=== PATIENT | female | born 1965 | race Caucasian/White ===

== ENCOUNTER → 2016-06-12 | Outpatient (CLI) | payer BC | END | disposition home or self-care (01) | LOC: LABWHC1 16:25 | PROVIDERS: ATTEND Nurse Practitioner | DX: E03.9 Hypothyroidism, unspecified (principal) | CPT/HCPCS: 36415; 84443; 86376 ==

== ENCOUNTER → 2018-03-26 | Outpatient (CLI) | payer OTHER ==
[2018-03-26 11:30] LABS: Basophils % (A) 1 %; Eosinophils # (A) 0.3 k/uL (0-0.7); Eosinophils % (A) 4 %; HCT 42.3 % (34.0-46.0); HGB 14.1 gm/dL (11.4-16.0); Lymphocytes # (A) 1.9 k/uL (1.0-4.8); Lymphocytes % (A) 30 %; MCH 29.4 pg (25.0-35.0); MCHC 33.3 g/dL (31.0-37.0); MCV 88.2 fL (80.0-100.0); Mean Platelet Volume 6.7; Monocytes # (A) 0.3 k/uL (0-1.0); Monocytes % (A) 5 %; Neutrophils # (A) 3.8 k/uL (1.3-7.7); Neutrophils % (A) 58 %; Platelet Count 286 k/uL (150-450); RDW 12.7 % (11.5-15.5); WBC 6.4 k/uL (3.8-10.6)
[2018-03-26 16:31] LABS: Albumin 4.6 g/dL (3.80-4.90); Anion Gap 8.1 mmol/L (4.00-12.00); Calcium 9.9 mg/dL (8.7-10.3); Carbon Dioxide 26.9 mmol/L (21.6-31.8); Globulin 2.3 g/dL (1.6-3.3); LDL Cholesterol,Calculated 138.6 mg/dL (0.0-131.0); Potassium 4.6 mmol/L (3.5-5.5); Total Bilirubin 0.5 mg/dL (0.2-1.2); Total Protein 6.9 g/dL (6.2-8.2); VLDL Calculation 20.4 mg/dL (5.00-40.00)
[2018-03-26 16:35] LABS: Vitamin D 25 Hydroxy 20.7 ng/mL (30.0-100.0)
[2018-03-26 16:40] LABS: T4, Free (Free Thyroxine) 1.4 ng/dL (0.80-1.80)
[2018-03-26 16:47] LABS: Thyroid Peroxidase Antibodies 202.3 U/mL (0.0-60.0)
== END | disposition home or self-care (01) ==
LOC: LABWHC1 10:36
PROVIDERS: ATTEND Internal Medicine Endocrinology, Diabetes & Metabolism
DX: Z00.00 Encounter for general adult medical examination without abnormal findings (principal); E03.8 Other specified hypothyroidism; Z13.1 Encounter for screening for diabetes mellitus; E55.9 Vitamin D deficiency, unspecified; Z78.0 Asymptomatic menopausal state; R53.83 Other fatigue; E06.3 Autoimmune thyroiditis; N94.9 Unspecified condition associated with female genital organs and menstrual cycle; Z79.899 Other long term (current) drug therapy; Z13.220 Encounter for screening for lipoid disorders
CPT/HCPCS: 36415; 80053; 80061; 82306; 82670; 83001; 84144; 84403; 84439; 84443; 84480; 84482; 85025; 86376

== ENCOUNTER → 2018-09-21 | Outpatient (CLI) | payer OTHER ==
--- NOTE | 2018-09-26 14:12 | MM ---
Reason for exam: screening (asymptomatic). Last mammogram was performed 3 years and 6 months ago. History: Family history of breast cancer in maternal aunt. Took hormonal contraceptives for 29 years beginning at age 20. Taking estrogen for 3 months. Taking progesterone. Physical Findings: A clinical breast exam by your physician is recommended on an annual basis and results should be correlated with mammographic findings. MG 3D Screening Mammo W/Cad Bilateral CC and MLO view(s) were taken. Prior study comparison: April 02, 2015, bilateral MG 3d screening mammo w/cad. September 20, 2012, bilateral digital screening mammo w/CAD. There are scattered fibroglandular densities. There is chronic nodularity bilaterally. No significant changes when compared with prior studies. ASSESSMENT: Negative, BI-RAD 1 RECOMMENDATION: Routine screening mammogram of both breasts in 1 year.
== END | disposition home or self-care (01) ==
LOC: RADMAMWWP 15:09
PROVIDERS: ATTEND Obstetrics & Gynecology
DX: Z12.31 Encounter for screening mammogram for malignant neoplasm of breast (principal)
CPT/HCPCS: 77063; 77067

== ENCOUNTER → 2021-05-13 | Outpatient (CLI) | payer BC ==
--- NOTE | 2021-05-14 09:10 | MM ---
Reason for exam: screening (asymptomatic). Last mammogram was performed 2 years and 8 months ago. History: Patient is postmenopausal. Family history of breast cancer in maternal aunt at age 77. Took hormonal contraceptives for 29 years beginning at age 20. Taking estrogen for 3 months. Taking progesterone. Physical Findings: A clinical breast exam by your physician is recommended on an annual basis and results should be correlated with mammographic findings. MG 3D Screening Mammo W/Cad Bilateral CC and MLO view(s) were taken. Prior study comparison: September 21, 2018, bilateral MG 3d screening mammo w/cad. April 02, 2015, bilateral MG 3d screening mammo w/cad. The breast tissue is heterogeneously dense. This may lower the sensitivity of mammography. There is no discrete abnormality. No significant changes when compared with prior studies. ASSESSMENT: Negative, BI-RAD 1 RECOMMENDATION: Routine screening mammogram of both breasts in 1 year.
== END | disposition home or self-care (01) ==
LOC: RADMAMWWP 10:54
PROVIDERS: ATTEND Obstetrics & Gynecology
DX: Z12.31 Encounter for screening mammogram for malignant neoplasm of breast (principal); Z78.0 Asymptomatic menopausal state; Z80.3 Family history of malignant neoplasm of breast
CPT/HCPCS: 77063; 77067

== ENCOUNTER 2021-08-21 10:45 | Day surgery (SDC) | payer BC ==
[2021-08-19 14:25] VITALS: BMI 33.0
[~2021-08-21 10:45] MED LIST: FAMOTIDINE 20 MG/2 ML VIAL IV PRN
[2021-08-21] MEDS ORDERED: ONDANSETRON 4 MG/2 ML VIAL ONE (11:56)
[2021-08-21] MEDS: OXYMETAZOLINE 0.05% NASL SPRAY 1 SPRAY BOTTLE EA NOSTRIL PRN ×5 (11:58→12:27)
[2021-08-21 12:18] LABS: Glucose,Whole Blood 91 mg/dL (75-99)
[2021-08-21] MEDS ORDERED: LACTATED RINGERS 1,000 ML IV ONE (12:21)
[2021-08-21] MEDS ORDERED: DEXAMETHASONE SOD PHOSPHATE 4 MG/ML 1 ML VIAL IVP ONE (12:23)
[2021-08-21] MEDS ORDERED: ONDANSETRON 4 MG/2 ML VIAL IVP ONE ×2 (12:23→18:01)
[2021-08-21] MEDS ORDERED: fentaNYL (PF) 50 MCG/ML 2 ML AMP ONE (14:28)
[2021-08-21] MEDS ORDERED: LIDOCAINE 2% INJ 20 MG/ML (2 ML VIAL) ONE (14:28)
[2021-08-21] MEDS ORDERED: LIDOCAINE 4% LTA KIT (4 ML) TOPICAL ONE (14:28)
[2021-08-21] MEDS ORDERED: SUCCINYLCHOLINE CHLORIDE 100 MG/5 ML SYR IV ONE (14:28)
[2021-08-21] MEDS ORDERED: PROPOFOL 10 MG/ML 20 ML VIAL IV ONE (14:28)
[2021-08-21] MEDS ORDERED: MIDAZOLAM 2 MG/2 ML VIAL ONE (14:28)
[2021-08-21] MEDS ORDERED: EPINEPHrine 1 MG/ML (MDV) 30 ML VIAL TOPICAL ONE (15:02)
[2021-08-21] MEDS ORDERED: BUPIVACAINE (PF) 0.25% 30 ML VIAL SQ ONE ×2 (15:02)
[2021-08-21] MEDS ORDERED: LIDOCAINE 1%/EPI 1:200,000 MPF 10 ML VIAL SQ ONE ×2 (15:02)
[2021-08-21 16:06] VITALS: TEMP 96.8
--- NOTE | 2021-08-21 16:23 | P.OP ---
Date of Procedure: 08/21/21 Preoperative Diagnosis: Chronic maxillary sinusitis bilateral Deviated nasal septum Hypertrophy of the inferior nasal turbinates Adenoid hypertrophy with obstruction Postoperative Diagnosis: Same Procedure(s) Performed: Septoplasty Bilateral submucosal resection of the inferior nasal turbinates with outfracture and compression Bilateral functional endoscopic sinus surgery with maxillary antrostomies Adenoidectomy by electrofulguration Anesthesia: KATHEA Surgeon: Jeffrey Al Estimated Blood Loss (ml): 15 Pathology: other (Sinonasal) Condition: stable Disposition: PACU Indications for Procedure: This patient has had persistent nasal airway obstruction and has failed medical therapy. She was found have chronic maxillary sinusitis with mucosal thickening bilaterally and she had large obstructive inferior turbinates and large adenoids that were recurrent. Adenoids were large and obstructive septum was deviated and also obstructive the deviation was over 85% occlusive and had large obstructive inferior turbinates. After long discussion we decided to proceed f orward with this septoplasty, turbinate surgery him adenoidectomy, and bilateral functional endoscopic sinus surgery with maxillary antrostomies that she was a medical failure. All risks, benefits and alternative therapies were discussed in detail. She been on multiple antibiotics and Flonase nasal spray or with no improvement. Operative Findings: Severe deviated nasal septum S-shaped along with large obstructive inferior turbinates and large obstructive adenoids with evidence of chronic maxillary sinusitis. Description of Procedure: This patient was taken to the operative room and placed in the supine position. A general inhalation anesthetic was administered to the patient by the department of anesthesia with a functioning IV line in place. The patient was monitored throughout the entire case by the department of anesthesia. The eyes were taped shut for protection. The patient was placed in a slight reverse Trendelenburg position. The patient had previously utilize Afrin nasal spray preoperatively. The nose was evaluated and the septum lateral nasal wall and inferior turbinates were injected with lidocaine 1% with epinephrine 1 100,000 bilaterally. Approximately 10 minutes were allowed wait for full vasoconstrictive effects to take place. At this point a caudal incision was made over the caudal portion of the left septum down to the mucoperichondrium. A mucoperichondrial flap was elevated on the left side and dissection was carried with use of tunnels posteriorly. We then made a crossover incision through the cartilage to the contralateral side and for the mucoperichondrial flap development was performed to the extent of visualization on the contralateral side. After the cartilage was freed with use of several crosshatching incisions and removal of some redundant strips of septal cartilage, the septum was straightened and placed back in the midline. The septum was sutured fixated to the ovarian groove. Excellent straightening occurred and the septum was visibly straight. Incision was closed with a 40 rapid Vicryl. We utilized a running nonlocking fashion for closure of the incision. A quilting stitch was used to reapproximate the septal flaps with use of a 40 rapid Vicryl. We then entered the nose with a 0 and 30 Anthony linda endoscope. Previous to this we did inject the lateral nasal wall and middle turbinate and uncinate process with lidocaine 1% with epinephrine 1 100,000. Approximately 10 minutes were allowed wait for full vasoconstrictive effects to take place. With use of a microdebrider and a pediatric backbiter, we took down the uncinate process bilaterally. We then opened the maxillary sinuses bilaterally. We utilized a microdebrider for this and entered the maxillary sinuses and removed diseased tissue. This was done bilaterally. Xerogel was inserted and minimal bleeding was encountered. We reinspected the skull base there is no signs of any orbital penetration or signs of any intracranial penetration. The sugical site was reinspected after the xerogel was placed and no bleeding was seen. Intranasal splints were inserted and fixated at the end of the case. We utilized De Paz nasal splints. There will be removed and the patient returns to the office. Attention was then paid to the inferior turbinates. The bilateral inferior turbinates were hypertrophic and obstructive. We entered the anterior portion of the inferior turbinates with use of a microdebrider. We remove bone and submucosal elements with use of a microdebrider bilaterally. The inferior turbinates underwent a submucosal resection with removal of submucosal tissue and bone. We obtained a much better and normal in size for breathing. The inferior turbinates were then outfractured and compressed with a doubleTwist nasal elevator. Excellent airway was obtained and was symmetric bilaterally. No bleeding was encountered. The mouth was opened with use of a McIvor mouth gag. A red rubber catheter was placed through the nose and out the mouth and used to retract the soft palate and secured with a hemostat. With use of a mirror the nasopharynx was evaluated and the adenoids were found be large and obstructive and problematic. With use of suction electrocoagulation, the adenoids were electrofulgurated and then suctioned through the handpiece. The entire adenoid bed was electrofulgurated liquefied and suction and removed. The adenoidectomy was performed and no bleeding was encountered. Patient tolerated this procedure very well. We took care to avoid any trauma to the lips teeth gums and tongue. We also prior to surgery evaluated the soft palate and did not find any evidence of a submucosal cleft area
[2021-08-21] MEDS ORDERED: HYDROmorphone 0.5 MG/0.5 ML SYRINGE IVP ONE (16:42)
[2021-08-21] MEDS ORDERED: oxyCODONE-APAP 5-325MG 1 EACH TAB ONE (17:12)
[2021-08-21] MEDS ORDERED: oxyCODONE-APAP 5-325MG 1 EACH TAB PO ONE (17:16)
[2021-08-21 18:04] VITALS: RESP 18
[2021-08-21 18:21] VITALS: BP 121/64; PULSE 59
== END 2021-08-21 18:43 | disposition home or self-care (01) ==
LOC: OR 10:45
PROVIDERS: ATTEND Otolaryngology
DX: J32.0 Chronic maxillary sinusitis (principal); J34.2 Deviated nasal septum; J35.2 Hypertrophy of adenoids
CPT/HCPCS: 30130; 30520; 31256; 42831; J0171; J2250; J1100; J2405; J3010; J0330; J2704; J1170; J2001; 88300; 88305

== ENCOUNTER → 2024-06-02 | Outpatient (CLI) | payer BC ==
--- NOTE | 2024-06-02 14:41 | MM ---
Reason for Exam: Screening (asymptomatic). Last mammogram was performed 2 year(s) and 0 month(s) ago. Patient History: Menarche at age 12. First Full-Term at age 26. Postmenopausal. Patient has history of breast feeding. Currently using Estrogen, beginning at age 54 for 3 years. Currently using Progesterone, beginning at age 54 for 3 years. Hormonal Contraceptives for 10 years from age 20 until age 30. Maternal aunt had breast cancer, age 77. Maternal cousin had breast cancer, age 56. Risk Values: Tracy 5 year model risk: 1.5%. NCI Lifetime model risk: 8.3%. Prior Study Comparison: 05/13/2021 Bilateral Screening Mammogram, [facility]. 05/22/2022 Bilateral MG 3D screening mammo w/cad, [facility]. 06/02/2022 Left MG 3D work up w/cad LT, [facility]. Tissue Density: The breasts are almost entirely fatty. Findings: Analyzed By CAD. Right breast: There is no suspicious group of microcalcifications or new suspicious mass. Left breast: There is no suspicious group of microcalcifications or new suspicious mass. Overall Assessment: Negative, BI-RAD 1 Management: Screening Mammogram of both breasts in [address] [facility] will attempt to contact patient to return for supplemental views and ultrasound if indicated. Patient should continue monthly self-breast exams. A clinical breast exam by your physician is recommended on an annual basis. This exam should not preclude additional follow-up of suspicious palpable abnormalities. Note on Tracy scores and lifetime risk: 1. A Tracy score greater than 3% is considered moderate risk. If this is the case, consider specialist referral to assess eligibility for a risk reducing agent. 2. If overall lifetime risk for the development of breast cancer is 20% or higher, the patient may qualify for future screening with alternating mammogram and breast MRI. [facility], , 06/02/2024 2:37 PM. Electronically signed and approved by: Carlos Lopez DO
== END | disposition home or self-care (01) ==
LOC: RADMAMWWP 13:14
PROVIDERS: ATTEND Family Medicine
DX: Z12.31 Encounter for screening mammogram for malignant neoplasm of breast (principal); Z00.00 Encounter for general adult medical examination without abnormal findings; R92.313 Mammographic fatty tissue density, bilateral breasts; Z78.0 Asymptomatic menopausal state; Z80.3 Family history of malignant neoplasm of breast
CPT/HCPCS: 77063; 77067